=== PATIENT | male | born 1945 | race Caucasian/White ===

== ENCOUNTER 2022-10-20 21:42 | Emergency (ER) | payer MEDICARE ==
[2022-10-20] MEDS ORDERED: Lidocaine 1% 5 ML VIAL INJECT ONE (22:07)
[2022-10-20] MEDS ORDERED: Bacitracin Oint 1 GM U/D Packet TOP ONE (22:07)
== END 2022-10-20 23:45 | disposition home or self-care (01) ==
LOC: JP.ED 21:42
DX: S61.432A Puncture wound without foreign body of left hand, initial encounter (principal); W45.8XXA Other foreign body or object entering through skin, initial encounter
CPT/HCPCS: 99282